=== PATIENT | male | born 1975 | race Caucasian/White ===

== ENCOUNTER 2018-10-08 07:57 | Emergency (ER) | payer MEDICAID ==
[2018-10-08] MEDS ORDERED: KETOROLAC 15 MG/1 ML SDV IVP ONE (08:18)
--- NOTE | 2018-10-08 08:21 | EDPHY ---
H & P Stated Complaint: Hurt ribs hx 10days, coughing fit last night and in pain now Time Seen by Provider: 10/08/18 08:12 HPI/ROS: CHIEF COMPLAINT: Right rib pain HISTORY OF PRESENT ILLNESS: Patient is a 43-year-old man who comes to the emergency department complaining of right axillary rib pain. He states that it began about 10 days ago. No fall or injury or trauma to think of. He was essentially ignoring it and it seemed to improve. However yesterday afternoon he had a coughing fit and had a significant increase in his pain. He does not feel short of breath. No recent fevers or illness. He does state that he had pneumonia about 3 months ago. He also is a smoker and does a lot of driving and traveling. No history of cardiac or pulmonary disease. No leg swelling or pain. His pain is worse with movement such as bending or twisting. No hemoptysis. Severity: Severe Modifying factors: Worsened by movement or palpation REVIEW OF SYSTEMS: Constitutional: denies: chills, fever, recent illness, recent injury EENTM: denies: blurred vision, double vision, nose congestion Respiratory: See HPI Cardiac: denies: chest pain, irregular heart rate, lightheadedness, palpitations Gastrointestinal/Abdominal: denies: abdominal pain, diarrhea, nausea, vomiting, blood streaked stools Genitourinary: denies: dysuria, frequency, hematuria, pain Musculoskeletal: See HPI Skin: denies: lesions, rash, jaundice, bruising Neurological: denies: headache, numbness, paresthesia, tingling, dizziness, weakness Hematologic/Lymphatic: denies: blood clots, easy bleeding, easy bruising Immunologic/allergic: denies: HIV/AIDS, transplant 10 systems reviewed and negative except as noted EXAM: GENERAL: Moderate pain, well-nourished and in no acute distress. HEAD: Atraumatic, normocephalic. EYES: Pupils equal round and reactive to light, extraocular movements intact, sclera anicteric, conjunctiva are normal. ENT: TMs normal, nares patent, oropharynx clear without exudates. Moist mucous membranes. NECK: Normal range of motion, supple without lymphadenopathy or JVD. LUNGS: Pain with palpation of right mid axillary ribs. Breath sounds clear to auscultation bilaterally and equal. No wheezes rales or rhonchi. HEART: Regular rate and rhythm without murmurs, rubs or gallops. ABDOMEN: Soft, nontender, normoactive bowel sounds. No guarding, no rebound. No masses appreciated. BACK: No CVA tenderness, no spinal tenderness, step-offs or deformities EXTREMITIES: Normal range of motion, no pitting or edema. No clubbing or cyanosis. Pain with movement of torso. NEUROLOGICAL: Cranial nerves II through XII grossly intact. Normal speech, normal gait. 5/5 strength, normal movement in all extremities, normal sensation , normal reflexes PSYCH: Normal mood, normal affect. SKIN: Warm, dry, normal turgor, no visible rashes or lesions. Source: Patient Exam Limitations: No limitations - Personal History Current Tetanus/Diphtheria Vaccine: Yes Current Tetanus Diphtheria and Acellular Pertussis (TDAP): Yes - Medical/Surgical History Hx Asthma: No Hx Chronic Respiratory Disease: No Hx Diabetes: No Hx Cardiac Disease: No Hx Renal Disease: No Hx Cirrhosis: No Hx Alcoholism: No Hx HIV/AIDS: No Hx Splenectomy or Spleen Trauma: No - Family History Significant Family History: No pertinent family hx - Social History Smoking Status: Current every day smoker Alcohol Use: Sober Constitutional: Initial Vital Signs Temperature (C) 36.8 C 10/08/18 08:00 Heart Rate 65 10/08/18 08:00 Respiratory Rate 16 10/08/18 08:00 Blood Pressure 110/67 10/08/18 08:00 O2 Sat (%) 99 10/08/18 08:00 O2 Delivery Mode Room Air Allergies/Adverse Reactions: No Known Allergies Allergy (Unverified 10/08/18 07:59) Home Medications: Medication Instructions Recorded NK [No Known Home Meds] 10/08/18 Medical Decision Making - Diagnostics EKG Interpretation: An EKG obtained and was read and documented in trace view. Please see trace view for full reading and report. Sinus rhythm, minimal ST elevation in lateral leads, consistent with benign early repolarization, no reciprocal changes. Imaging Results: Imaging Impressions Chest X-Ray 10/08/18 08:18 Impression: Possible airways disease. No source for right upper quadrant pain identified. Imaging: Discussed imaging studies w/ diesel trailer mechanic Radiologist Procedures: Procedure: Splint placement. A Celso wrap was applied. After application of the splint I returned and re- examined the patient. The splint was adequately immobilizing the joint and distal to the splint the patient's circulation and sensation was intact. ED Course/Re-evaluation: 8:55 a.m. we discussed x-ray and lab results. Patient is greatly reassured. His pain is improved with Toradol. Will wrapped with Celso bandage to splint as tolerated. Patient declines further workup or testing and is eager to go home. Differential Diagnosis: Partial list of the Differential diagnosis considered include but were not limited to; muscle strain, rib fracture and although unlikely based on the history and physical exam, I also considered pneumothorax, pneumonia, PE, acute coronary disease. I discussed these differential diagnoses and the plan with the patient as well as the usual and expected course. The patient understands that the diagnosis is provisional and that in medicine we are not always correct and that further workup is often warranted. Usual and customary warnings were given. All of the patient's questions were answered. The patient was instructed to return to the emergency department should the symptoms at all worsen or return, otherwise to followup with the physician as we discussed. - Data Points Laboratory Results: Laboratory Results 10/08/18 08:21 10/08/18 08:21 10/08/18 10/08/18 10/08/18 08:33 08:21 08:21 WBC RBC Hgb Hct MCV MCH MCHC RDW Plt Count MPV Neut % (Auto) Lymph % (Auto) [place] % (Auto) Eos % (Auto) Baso % (Auto) Nucleat RBC Rel Count Absolute Neuts (auto) Absolute Lymphs (auto) Absolute Monos (auto) Absolute Eos (auto) Absolute Basos (auto) Absolute Nucleated RBC Immature Gran % Immature Gran # D-Dimer 0.30 ug/mLFEU ug/mLFEU (0.00-0.50) Sodium 137 mEq/L mEq/L (135-145) Potassium 4.5 mEq/L mEq/L (3.5-5.2) Chloride 107 mEq/L mEq/L (97-110) Carbon Dioxide 23 mEq/l mEq/l (22-31) Anion Gap 7 mEq/L mEq/L (6-14) BUN 19 mg/dL mg/dL (7-23) Creatinine 0.9 mg/dL mg/dL (0.7-1.3) Estimated GFR > 60 Glucose 91 mg/dL mg/dL (70-100) Calcium 9.3 mg/dL mg/dL (8.5-10.4) POC Troponin I 0.00 ng/mL ng/mL (0.00-0.08) 10/08/18 08:21 WBC 6.71 10^3/uL 10^3/uL (3.80-9.50) RBC 5.13 10^6/uL 10^6/uL (4.40-6.38) Hgb 16.4 g/dL g/dL (13.7-17.5) Hct 46.5 % % (40.0-51.0) MCV 90.6 fL fL (81.5-99.8) MCH 32.0 pg pg (27.9-34.1) MCHC 35.3 g/dL g/dL (32.4-36.7) RDW 12.6 % % (11.5-15.2) Plt Count 260 10^3/uL 10^3/uL (150-400) MPV 9.4 fL fL (8.7-11.7) Neut % (Auto) 55.5 % % (39.3-74.2) Lymph % (Auto) 30.8 % % (15.0-45.0) [place] % (Auto) 9.2 % % (4.5-13.0) Eos % (Auto) 3.7 % % (0.6-7.6) Baso % (Auto) 0.7 % % (0.3-1.7) Nucleat RBC Rel Count 0.0 % % (0.0-0.2) Absolute Neuts (auto) 3.71 10^3/uL 10^3/uL (1.70-6.50) Absolute Lymphs (auto) 2.07 10^3/uL 10^3/uL (1.00-3.00) Absolute Monos (auto) 0.62 10^3/uL 10^3/uL (0.30-0.80) Absolute Eos (auto) 0.25 10^3/uL 10^3/uL (0.03-0.40) Absolute Basos (auto) 0.05 10^3/uL 10^3/uL (0.02-0.10) Absolute Nucleated RBC 0.00 10^3/uL 10^3/uL (0-0.01) Immature Gran % 0.1 % % (0.0-1.1) Immature Gran # 0.01 10^3/uL 10^3/uL (0.00-0.10) D-Dimer Sodium Potassium Chloride Carbon Dioxide Anion Gap BUN Creatinine Estimated GFR Glucose Calcium POC Troponin I Medications Given: Discontinued Medications Ketorolac Tromethamine (Toradol) 15 mg IVP EDNOW ONE Stop: 10/08/18 08:19 Last Admin: 10/08/18 08:29 Dose: 15 mg Point of Care Test Results: Chemistry 10/08/18 08:33 POC Troponin I 0.00 ng/mL ng/mL (0.00-0.08) Departure - Departure Disposition: Home, Routine, Self-Care Clinical Impression: Rib pain on right side Condition: Fair Instructions: Muscle Strain (ED) Referrals: NONE *PRIMARY CARE P,. [Primary Care Provider] - As per Instructions Uriel Pearson DO [Doctor of Osteopathy] - As per Instructions
--- NOTE | 2018-10-08 08:24 | CPEKG ---
Test Reason : OPEN Blood Pressure : / mmHG Vent. Rate : 059 BPM Atrial Rate : 059 BPM P-R Int : 171 ms QRS Dur : 101 ms QT Int : 391 ms P-R-T Axes : 094 067 050 degrees QTc Int : [address] elev, probable normal early repol pattern Confirmed by Keri Huang ([id number]) on 10/08/2018 8:24:09 AM Referred By: KERI HUANG Confirmed By:Keri Huang
[2018-10-08 08:41] LABS: PLATELET COUNT 260 10^3/uL (150-400)
[2018-10-08 09:10] VITALS: BP 113/73
== END 2018-10-08 09:08 | disposition home or self-care (01) ==
DX: R07.81 Pleurodynia (principal); F17.200 Nicotine dependence, unspecified, uncomplicated
CPT/HCPCS: 84484-ER; 96374; J1885